=== PATIENT | female | born 1970 | race Caucasian/White ===

== ENCOUNTER 2017-01-13 10:04 | Day surgery (SDC) | payer SELFPAY ==
[2017-01-12 09:05] VITALS: BMI 40.8
[~2017-01-13 10:04] MED LIST: DEXAMETHASONE SOD PHOSPHATE 10 MG/ML 1 ML VIAL IV ONE; HEPARIN SODIUM,PORCINE 5,000 UNIT/ML 1 ML VIAL SQ ONE; LACTATED RINGERS 1,000 ML IV SCH; MIDAZOLAM 2 MG/2 ML VIAL IV PRN; ONDANSETRON 4 MG/2 ML VIAL IVP ONE; SCOPOLAMINE 1.5MG/72HR PATCH TRANSDERM ONE; ceFAZolin 3 GM in SODIUM CHLORIDE 0.9% 100 ML IVPB ONE
--- NOTE | 2017-01-13 10:21 | P.GSHP ---
History of Present Illness H&P Date: 01/13/17 Chief Complaint: Cholelithiasis, cholecystitis This a 46-year-old female who had a recent hospital admission for gallstone pancreatitis and cholecystitis. Patient presents today for laparoscopic cholecystectomy. She is known to have a history of gallstones. Past Medical History Past Medical History: Osteoarthritis (OA) Additional Past Medical History / Comment(s): varicose veins, gallstones, pancreatitis, History of Any Multi-Drug Resistant Organisms: None Reported Past Surgical History: Hysterectomy Additional Past Surgical History / Comment(s): left oophorectomy, lumpectomy rt axilla, sinus surgery Past Anesthesia/Blood Transfusion Reactions: No Reported Reaction Past Psychological History: Anxiety Smoking Status: Former smoker Past Alcohol Use History: Occasional Additional Past Alcohol Use History / Comment(s): quit smoking 4 yrs ago, smoked for 20 yrs, 1 PPD Past Drug Use History: None Reported - Past Family History Mother Family Medical History: Cancer Medications and Allergies Home Medications Medication Instructions Recorded Confirmed Type ALPRAZolam [Xanax] 0.25 mg PO DAILY PRN 01/12/17 01/12/17 History Allergies Allergy/AdvReac Type Severity Reaction Status Date / Time No Known Allergies Allergy Verified 01/13/17 10:18 Surgical - Exam - General well developed, no distress - Eyes PERRL - ENT normal pinna - Neck no masses - Respiratory normal expansion - Cardiovascular Rhythm: regular - Abdomen Abdomen: soft, non tender Assessment and Plan Plan: Cholelithiasis Cholecystitis We will perform laparoscopic cholecystectomy
[2017-01-13] MEDS ORDERED: LIDOCAINE 1% 20 ML VIAL (10MG/ML) FOR IV START INTRADERMA ONE (10:53)
[2017-01-13] MEDS ORDERED: GLYCOPYRROLATE 0.2 MG/ML 2 ML VIAL ONE (11:22)
[2017-01-13] MEDS ORDERED: VECURONIUM 10 MG VIAL IV ONE (11:22)
[2017-01-13] MEDS ORDERED: LIDOCAINE 1% INJ 10MG/ML (20 ML MDV) ONE (11:22)
[2017-01-13] MEDS ORDERED: MIDAZOLAM 2 MG/2 ML VIAL ONE (11:22)
[2017-01-13] MEDS ORDERED: HYDROmorphone (PF) 1 MG/ML ONE (11:22)
[2017-01-13] MEDS ORDERED: fentaNYL (PF) 50 MCG/ML 2 ML AMP ONE (11:22)
[2017-01-13] MEDS ORDERED: KETOROLAC 30 MG/ML 1 ML VIAL ONE (11:22)
[2017-01-13] MEDS ORDERED: NEOSTIGMINE 1 MG/ML 10 ML VIAL ONE (11:22)
[2017-01-13] MEDS ORDERED: SUCCINYLCHOLINE CHLORIDE 100 MG/5 ML SYR IV ONE (11:22)
[2017-01-13] MEDS ORDERED: PROPOFOL 10 MG/ML 20 ML VIAL IV ONE (11:22)
[2017-01-13] MEDS ORDERED: BUPIVACAIN-EPI 0.25%-1:200,000 30 ML VIAL SQ ONE (11:44)
--- NOTE | 2017-01-13 12:06 | P.OP ---
Date of Procedure: 01/13/17 Preoperative Diagnosis: Cholecystitis Cholelithiasis Postoperative Diagnosis: Cholecystitis Cholelithiasis Procedure(s) Performed: Laparoscopic cholecystectomy Anesthesia: SAGRARIO Surgeon: Yovany Carr Estimated Blood Loss (ml): 5 Pathology: other (Gallbladder) Condition: stable Disposition: PACU Description of Procedure: The patient was placed on the operating table. The patient received a general endotracheal tube anesthesia. The patients abdomen was prepped and draped in the usual sterile fashion. Through an infraumbilical stab incision, the fascia of the anterior abdominal wall was grasped with a pair of Kochers and then the Veress needle was placed in the peritoneal cavity. Position of the Veress needle was confirmed with positive drop test. The abdomen was then insufflated. After adequate insufflation, the 10 mm trocar was placed in the peritoneal cavity. Following this the laparoscope was placed in the peritoneal cavity. The patient was placed in the head-up, right side up position and then a 5 mm trocar was placed in the right lateral and right subcostal position under direct visualization. A 8 mm trocar was placed in the epigastric position. The gallbladder was grasped in the fundus and infundibulum. Traction on the gallbladder was placed in the lateral and the cephalad positions. The triangle of Calot was visualized.. The cystic duct was bluntly dissected until the union of the cystic duct and common bile duct was seen. The cystic duct was then divided and sealed with the Harmonic scissors. A PDS Endoloop was then placed throughout the cystic duct stump. The cystic artery divided and sealed with the Harmonic scissors. The gallbladder was then removed from the liver bed using Harmonic scissors. The gallbladder was then extracted through the epigastric port site. Operative field was checked for any bleeding spots and Harmonic scissors was used to coagulate the liver bed. The abdomen was irrigated. The trocars were removed. The skin was closed using interrupted 3-0 Vicryl suture. Dermabond dressing were applied. The patient tolerated the procedure well.
[2017-01-13 12:32] VITALS: TEMP 97.5
[2017-01-13] MEDS: HYDROmorphone 1 MG/ML 1 ML SYRINGE IVP PRN ×2 (13:12→13:17)
[2017-01-13 13:23] VITALS: RESP 16
[2017-01-13] MEDS ORDERED: LACTATED RINGERS 1,000 ML IV ONE (13:32)
[2017-01-13 14:25] VITALS: PULSE 85
[2017-01-13 14:35] VITALS: BP 106/63
== END 2017-01-13 14:57 | disposition home or self-care (01) ==
LOC: OR 10:04
PROVIDERS: ATTEND Surgery
DX: K80.10 Calculus of gallbladder with chronic cholecystitis without obstruction (principal); F41.9 Anxiety disorder, unspecified; Z87.891 Personal history of nicotine dependence; Z79.899 Other long term (current) drug therapy; Z90.710 Acquired absence of both cervix and uterus; Z90.721 Acquired absence of ovaries, unilateral
CPT/HCPCS: 47562; 88304; J2250; J1644; J1100; J2710; J0690; J2405; J2001; J3010; J1885; J1170; J0330; J2704

== ENCOUNTER 2021-06-18 12:19 | Day surgery (SDC) | payer BC ==
[2021-06-18 13:44] VITALS: RESP 16
[2021-06-18 13:45] VITALS: BP 121/68; PULSE 82
--- NOTE | 2021-06-18 14:13 | US ---
ULTRASOUND GUIDED FNA THYROID BIOPSY: CLINICAL HISTORY: 1.5 cm left thyroid nodule FINDINGS: The procedure was explained to the patient. The risks, complications, benefits and alternatives were discussed and any questions were answered. Informed consent was obtained. Patient was placed supin e on the ultrasound table and prepped and draped in the usual sterile fashion. Utilizing a 25 gauge needle, five passes were made into the 1.5 cm left thyroid nodule. Patient was stable throughout the procedure. Pathology is pending. All elements of maximal barrier technique were utilized. IMPRESSION: 1. Successful ultrasound guided FNA thyroid biopsy.
== END 2021-06-18 14:05 | disposition home or self-care (01) ==
LOC: RADPROMAIN 12:19
PROVIDERS: ATTEND Family Medicine
DX: E04.1 Nontoxic single thyroid nodule (principal)
CPT/HCPCS: 10005; 88173; 88305

== ENCOUNTER → 2024-02-29 | Outpatient (CLI) | payer OTHER ==
--- NOTE | 2024-03-01 17:44 | NM ---
EXAMINATION TYPE: NM thyroid image w uptake DATE OF EXAM: 03/01/2024 COMPARISON: 12/14/2011 CLINICAL INDICATION: Female, 53 years old with history of E04.2 NONTOXIC MULTINODULAR GOITER; TECHNIQUE: Thyroid iodine uptake is calculated and images performed after the oral administration of 294 uCi 1-123 Capsule. FINDINGS: There is normal distribution of activity throughout the gland. The 4 hour iodine uptake is calculated at 12.2% (normal range 8-14%). The 24-hour iodine uptake is calculated at 34.6% (normal r felipe 15-35%). These are at the upper limits for normal. No suspicious photopenic defects are evident. Findings appear stable from the comparison IMPRESSION: 1. Stable thyroid uptake and scan.
== END | disposition home or self-care (01) ==
LOC: MERGE 09:44 → RADNMMAIN 09:44
PROVIDERS: ATTEND Family Medicine
DX: E04.2 Nontoxic multinodular goiter (principal)
CPT/HCPCS: 78014; A9516

== ENCOUNTER 2024-04-06 11:32 | Day surgery (SDC) | payer OTHER ==
[2024-04-04 10:55] VITALS: BMI 44.7
[2024-04-06] MEDS: IV FLUID CONTINUATION 1,000 ML IV ONE (11:53)
[2024-04-06 12:03] VITALS: TEMP 97.1
[2024-04-06] MEDS: LACTATED RINGERS 1,000 ML IV SCH (12:08)
[2024-04-06] MEDS ORDERED: PROPOFOL 10 MG/ML 20 ML VIAL IV ONE (12:43)
--- NOTE | 2024-04-06 13:02 | P.PCN ---
Date of Procedure: 04/06/24 Procedure(s) Performed: BRIEF HISTORY: Patient is a 53-year-old pleasant white female scheduled for an elective colonoscopy as a part of screening for colon cancer. PROCEDURE PERFORMED: Colonoscopy with snare polypectomy. PREOPERATIVE DIAGNOSIS: Screening for colon cancer. IV sedation per Anesthesia. PROCEDURE: After informed consent was obtained, the patient, was brought into the endoscopy unit. IV sedation was administered by Anesthesia under continuous monitoring. Digital rectal examination was normal. Initially the Olympus CF-160 flexible video colonoscope was then inserted in the rectum, gradually advanced into the cecum without any difficulty. Careful examination was performed as the scope was gradually being withdrawn. Ileocecal valve and the appendiceal orifice were visualized and appeared normal. Prep was excellent. Mucosa of the cecum, appeared normal. The ascending colon there was a 5 mm polyp removed by cold snare polypectomy. Rest of the ascending colon, transverse colon, descending colon, sigmoid colon, appeared normal. The distal sigmoid colon there was a 1 cm polyp removed by snare polypectomy. In the rectum there was a 4 mm polyp removed by snare polypectomy. . Retroflexion was performed in the rectum and no lesions were seen. The patient tolerated the procedure well. IMPRESSION: 5 mm ascending colon polyp status post polypectomy 1 cm sigmoid colon polyp status post polypectomy 4 mm rectal polyp status post polypectomy RECOMMENDATIONS: Findings of this examination were discussed with the patient as well as her family. She was advised to follow-up with the biopsy results. If the biopsy reveals adenoma she can have repeat colonoscopy in 3 years..
[2024-04-06 13:24] VITALS: BP 101/67; PULSE 82; RESP 18
== END 2024-04-06 13:42 ==
LOC: ORWHC2ENDO 11:32
PROVIDERS: ATTEND Internal Medicine Gastroenterology
DX: Z12.11 Encounter for screening for malignant neoplasm of colon (principal); D12.2 Benign neoplasm of ascending colon; K63.5 Polyp of colon; D12.8 Benign neoplasm of rectum; Z88.0 Allergy status to penicillin; E66.01 Morbid (severe) obesity due to excess calories; Z68.41 Body mass index [BMI] 40.0-44.9, adult; Z91.09 Other allergy status, other than to drugs and biological substances; Z87.891 Personal history of nicotine dependence; Z79.899 Other long term (current) drug therapy
CPT/HCPCS: 88305; 45385; J2704